=== PATIENT | female | born 1955 | race Caucasian/White ===

== ENCOUNTER 2020-11-11 03:42 | Emergency (ER) | payer MEDICARE ==
[~2020-11-11 03:42] MED LIST: ELAVIL50 MG PO; HCTZ25 MG PO; LEVAQUIN500 MG PO; LIPITOR40 MG PO; MIRALAX17 GM PO; NEURONTIN300 MG PO; NORVASC5 MG PO; PROTONIX40 MG PO; RESTORIL30 MG PO; VICODIN 10/3251 EACH PO; ZOLOFT50 MG PO
== END 2020-11-11 06:15 | disposition home or self-care (01) ==
LOC: FER 03:42
DX: G25.81 Restless legs syndrome (principal); I10 Essential (primary) hypertension; Z88.5 Allergy status to narcotic agent; Z91.040 Latex allergy status
CPT/HCPCS: 96372; 99283; J1100; J1170

== ENCOUNTER 2021-02-04 04:11 | Emergency (ER) | payer MEDICARE | END 2021-02-04 05:01 | disposition home or self-care (01) | LOC: FER 04:11 | DX: G89.29 Other chronic pain (principal); M54.50 Low back pain, unspecified; G25.81 Restless legs syndrome | CPT/HCPCS: 99283 ==

== ENCOUNTER 2021-05-05 04:05 | Emergency (ER) | payer MEDICARE ==
[2021-05-05] MEDS ORDERED: CYCLOBENZAPRINE10 MG PO (07:40)
[2021-05-05] MEDS ORDERED: IBUPROFEN800 MG PO (07:40)
[2021-05-05] MEDS ORDERED: MEDROL 4MG DOSEP4 MG PO (07:40)
[2021-05-05] MEDS ORDERED: NORCO 5-325 TA1 EACH PO (07:40)
== END 2021-05-05 07:50 | disposition home or self-care (01) ==
LOC: FER 04:05
DX: G89.11 Acute pain due to trauma (principal); M25.512 Pain in left shoulder; M25.511 Pain in right shoulder; I10 Essential (primary) hypertension; Z88.5 Allergy status to narcotic agent; Z91.040 Latex allergy status; Z91.09 Other allergy status, other than to drugs and biological substances; X50.9XXA Other and unspecified overexertion or strenuous movements or postures, initial encounter; Y92.009 Unspecified place in unspecified non-institutional (private) residence as the place of occurrence of the external cause
CPT/HCPCS: 71045; 73030; 93005; 96372; J1170; J1885; J7512